=== PATIENT | male | born 1955 | race Caucasian/White ===

== ENCOUNTER 2021-04-01 10:02 | Outpatient (AMB) | payer BC, OTHER, SELFPAY ==
--- NOTE | 2021-04-01 10:30 | UROVISIT ---
Intake Vital Signs 04/01/21 10:31 Height 1.68 m Height Method Stated Weight 76.204 kg Weight Measurement Method Standing Scale BMI 27.1 Temp 97.2 F Temp Source Temporal Artery Scan Pulse 102 H Pulse Source Monitor BP 145/85 H Blood Pressure Source Automatic Cuff Blood Pressure Location Left Upper Arm Position Sitting Intake Visit Reasons: Uro Office Visit Heater Tender Required: No Is patient in pain?: No Allergy Allergies NKA* Allergy (Uncoded 04/01/21 10:31) Nurse Note: Radha FITCH 04/01/21- patient urine sent out for cytology, patient to have CT urogram Stat, CMP lab req. given, 3 week f/u appt. Fall Screening Do you have a fear of falling?: No Have you had a fall in the last 2 months?: No Do you use an assistive device for ambulation?: No Current Vital Signs Height Height Method Weight Weight Measurement Method Body Mass Index Temperature Temperature Source 1.68 m Stated 76.204 kg Standing Scale 27.1 97.2 F Temporal Artery Scan 04/01/21 10:31 04/01/21 10:31 04/01/21 10:31 04/01/21 10:31 04/01/21 10:31 04/01/21 10:31 04/01/21 10:31 Pulse Rate Pulse Source Blood Pressure Blood Pressure Source Blood Pressure Location Blood Pressure Position 102 H Monitor 145/85 H Automatic Cuff Left Upper Arm Sitting 04/01/21 10:31 04/01/21 10:31 04/01/21 10:31 04/01/21 10:31 04/01/21 10:31 04/01/21 10:31 Nursing Documentation Social History Living Situation History Housing: House Tobacco History Smoking Status: Never smoker Office Procedures Uro Clinic Insert Urinary Cath Catheter Hill: Date of Insertion: 04/01/21 Time of Insertion: 11:17 Catheter balloon size (mL): 10 Patency: Patent/Draining Urine Characteristics: Hematuria Color: Charles Mix Odor: Normal Catheter Care: Annel-care Indwelling Catheter Care Protocol Followed: Closed System Intact, Bag Hung Below Bladder, Catheter Properly Secured and Tubing Free of Kinks My Supervising Practitioner for this visit:: Sid Mills Cath Insertion: Yes Uro Level of Care Nursing/Assessment/Reassessment Patient Status: Established Patient Nursing Assessment/Reassessment: Update [facility] data in EMR, Vital Signs and Medication Reconciliation Coordination of Care: Comp Pt/Fam Ed for care Established Patient Point Assignment: 50 Established Patient Point Charge: EP Level 2 (40-75) Procedure IM Injection: Yes Medication Given Medication Given Medication Given: Yes Route: IM Office Meds ceftriaxone Performing Provider: Sid Mills MD Administered by: Radha Villafuerte RN on 04/01/21 11:16 Dose Route Admin Location Lot Number Expiration Date [place] [employer] 1 g IM right ventrogluteal Xylocaine Performing Provider: Sid Mills MD Administered by: Radha Villafuerte RN on 04/01/21 11:16 Dose Route Admin Location Lot Number Expiration Date [employer] 10 mg subcut Urology [facility] Office Visit Office Visit Date of visit:: April 01, 2021 10:02 Allergies & Home Medications: Allergies NKA* Allergy (Uncoded 03/09/21 13:08) Visit: Reason for visit: [] Office Visit findings: []
[2021-04-01 10:31] VITALS: BP 145/85; PULSE 102; TEMP 36.2; BMI 27.1
--- NOTE | 2021-04-02 06:52 | URONOTEN_ITS ---
RE: SANTHOSH SOW : 1955 DATE: 04/01/2021 CHIEF COMPLAINT: 1. Difficulty in urinating. 2. Gross hematuria. 3. Urinary retention. 4. Hypertension. 5. Large epididymal cyst, left scrotum. 6. Erectile dysfunction. HISTORY OF PRESENT ILLNESS: This is a 65-year-old gentleman. He has same day appointment in Urology office. This patient has difficulty in urinating. He also passed blood in the urine twice. The patient has frequency of urination x1 at night, every hour during the day. He has dysuria and hematuria. This has been going on for more than 3 days. He has seen immigration lawyer, who found a swollen prostate gland and he complains of swelling of his buttocks and he has seen Dr. Burnham. Past medical history, family history, review of systems, personal history, please refer to patient history form dated, 04/01/2021, it is in HPI, in EMR. PHYSICAL EXAMINATION: General: Condition is satisfactory. Orientation x3. Vital Signs: Vital signs are stable. They are in the HPI, in EMR. HEENT: Normocephalic, atraumatic. Eyes: No anemia or jaundice. Neck: Supple. Trachea is central. Thyroid is not enlarged. Chest: Symmetrical. Extremities: Revealed no edema, cyanosis, or clubbing. Heart: Regular rate and rhythm. Abdomen: No masses. Liver, spleen, kidney not palpable. No CVA tenderness. Genitalia: Testes, epididymis, scrotum, urethra, external meatus all normal. He has suprapubic tenderness. Rectal: Revealed perineum to be normal. External sphincter tone is normal. He has a boggy and tender prostate gland. The patient has been on Cipro for the same. There are no rectal masses. IMPRESSION: 1. BPH with urinary retention. 2. Gross hematuria. 3. Left epididymal cyst. 4. Prostatitis, on Cipro. RECOMMENDATION: 1. I measured his residual urine is 450 mL. The patient is unable to urinate. I inserted a Hill catheter. 2. I have scheduled him for CAT scan urogram. 3. Urine for cytology. I called radiology department and made his same day appointment for CAT scan and I am sending urine for culture and he is started on Bactrim DS 1 tablet p.o. b.i.d., stop Cipro. All above issues were discussed with the patient in great detail. Questions were answered to his satisfaction. He verbalized understanding. Twenty five minutes were spent in counseling and coordination of care of the patient. Also, I recommended him to take tamsulosin 0.8 mg p.o. daily at nighttime half an hour after food, remove Hill catheter on Monday morning and followup appointment in Urology office in 2 weeks. He is going to need a cystoscopic examination. All above issues were discussed with the patient in detail. Questions answered to his satisfaction. He verbalized understanding. DT: 11:45:36 TT: 14:15:00 Ref: - TID: [id number]
== END 2021-04-01 11:20 | disposition home or self-care (01) ==
LOC: HODURO 10:02
PROVIDERS: PCP Specialist; Visit Provider Urology

== ENCOUNTER → 2024-07-30 | Outpatient (CLI) | payer BC, OTHER, SELFPAY ==
[2024-07-30 14:04] LABS: Collection Type, Urine Clean Catch; Squamous Epithelial Cell,Urine 0 /hpf (0-5)
[2024-07-30 14:21] LABS: Basophils % (Auto) 1 % (0-2.5); Eosinophils # (Auto) 0.1 Thou/mm3 (0.0-0.5); Eosinophils % (Auto) 2 % (0-10); Hematocrit 43.6 % (41.0-53.0); Hemoglobin 15.6 g/dL (13.5-16.0); Immature Granulocytes % (Auto) 0 % (0-0); Immature Granulocytes Auto 0.02 Thou/mm3 (0.00-0.00); Lymphocytes # (Auto) 1.5 Thou/mm3 (1.0-4.8); Lymphocytes % (Auto) 27 % (10-50); Mean Corpuscular HGB Conc 35.8 g/dl (31.0-37.0); Mean Corpuscular Hemoglobin 27.8 pg (25.0-35.0); Mean Corpuscular Volume 78 fL (80-100); Monocytes # (Auto) 0.5 Thou/mm3 (0.0-0.8); Monocytes % (Auto) 10 % (0-12); Neutrophils # (Auto) 3.3 Thou/mm3 (1.8-7.7); Neutrophils % (Auto) 60 % (37-80); Nucleated Red Blood Cell % 0 /100 WBC (0); Platelet Count 203 Thou/mm3 (140-440); RDW Standard Deviation 39.1 fL (35.1-43.9); Red Blood Count 5.61 Miln/mm3 (4.50-5.90); White Blood Count 5.5 Thou/mm3 (3.8-10.6)
[2024-07-30 14:33] LABS: Glucose Estimated Average 105 mg/dL (80-131); Hemoglobin A1C 5.3 % Hgb (4.8-6.0)
[2024-07-30 14:36] LABS: Alanine Aminotransferase 34 U/L (10-49); Albumin, Serum 4.3 gm/dL (3.4-4.8); Alkaline Phosphatase 85 U/L (46-116); Anion Gap 7 (7-16); BUN/Creatinine Ratio 20 Ratio (12-20); Bilirubin,Total 0.6 mg/dL (0.3-1.2); Blood Urea Nitrogen 14 mg/dL (9-23); Calcium 8.7 mg/dL (8.3-10.6); Calcium (Corrected) 8.7 mg/dL (8.5-10.1); Carbon Dioxide 29.6 mMol/L (20.0-31.0); Cardiac Risk Estimate 3.3 RATIO (4.0-6.7); Chloride 108 mMol/L (98-107); Cholesterol 160 mg/dL (132-200); Creatinine (Component) 0.7 mg/dL (0.6-1.3); Globulin 2.2 gm/dL (2.3-3.5); Glucose 98 mg/dL (74-106); HDL Cholesterol 49 mg/dL (40-60); LDL Cholesterol,Calculated 80 mg/dL (0-130); Osmolality,Calculated 289 (275-295); Potassium 4.2 mMol/L (3.4-5.1); Sodium 145 mMol/L (136-145); Thyroid Stimulating Hormone 0.82 uIU/mL (0.55-4.78); Total Protein 6.5 gm/dL (5.7-8.2); Triglycerides 157 mg/dL (30-150); eGFR > 60 See Note
[2024-07-30 14:36] LABS: Bilirubin,Urine Negative (Negative); Blood,Urine 3+ (Negative); Clarity,Urine Clear (Clear/Hazy); Color,Urine Lt-Yellow (Lt Yel-Yel); Glucose, Urine Negative (Negative); Ketones,Urine Negative (Negative); Leukocyte Esterase,Urine Negative (Negative); Nitrite,Urine Negative (Negative); PH,Urine 5.5 (5.0-7.0); Protein,Urine Negative (Neg - Trace); RBC,Urine 111 /hpf (0-3); Urobilinogen,Urine Negative mg/dL (0.0-1.0); WBC,Urine 2 /hpf (0-5)
[2024-07-30 14:37] LABS: Prostate Specific Antigen 1.35 ng/mL (0-4.00)
[2024-07-30 14:42] LABS: Vitamin B12 505 pg/mL (211-911); Vitamin D 25 Hydroxy Total 33.4 ng/mL (7.3-40.2)
== END | disposition home or self-care (01) ==
LOC: COPL 13:31
PROVIDERS: PCP Specialist; Referring Provider Specialist; Visit Provider Specialist
DX: I10 Essential (primary) hypertension (principal); E03.9 Hypothyroidism, unspecified
CPT/HCPCS: 36415; 80053; 80061; 81001; 82306; 82607; 82746; 83036; 84153; 84443; 85025

== ENCOUNTER → 2024-09-19 | Outpatient (CLI) | payer BC, OTHER, SELFPAY ==
[2024-09-19 17:27] LABS: Prostate Specific Antigen 1.29 ng/mL (0-4.00)
== END | disposition home or self-care (01) ==
PROVIDERS: PCP Specialist; Referring Provider Specialist; Visit Provider Specialist
DX: E78.9 Disorder of lipoprotein metabolism, unspecified (principal)
CPT/HCPCS: 36415; 84153

== ENCOUNTER → 2024-12-30 | Outpatient (BNVA) | payer BC, OTHER, SELFPAY | END | disposition home or self-care (01) | PROVIDERS: PCP Specialist; Referring Provider Specialist; Visit Provider Physician Assistant | DX: N40.0 Benign prostatic hyperplasia without lower urinary tract symptoms (principal); N32.81 Overactive bladder; N43.3 Hydrocele, unspecified | CPT/HCPCS: Q3014 ==

== ENCOUNTER → 2024-12-30 | Outpatient (CLI) | payer BC, OTHER, SELFPAY ==
--- NOTE | 2024-12-30 15:21 | XR_ITS ---
EXAMINATION: Thyroid sonography complete TECHNIQUE: Grayscale sonographic images thyroid lobes Date and time: December 30, 2024, 1558 hours INDICATIONS: Left testicular pain beginning 3 weeks ago. COMPARISON: 10/27/2020 FINDINGS: Right testis 4.4 cm epididymis 19 mm Epididymal cyst 4 mm Arterial flow the testicle. Testicular cyst 4 x 5 mm no solid testicular mass Left testis 4.0 cm epididymis 28 mm Epididymal cysts, 7 mm, 3 mm Testicular cyst 3 mm Arterial flow the testicle. No solid testicular mass IMPRESSION: No testicular torsion or testicular mass Small benign testicular cyst Small benign epididymal cysts
== END | disposition home or self-care (01) ==
PROVIDERS: PCP Physician Assistant; Referring Provider Specialist; Visit Provider Urology
DX: N44.2 Benign cyst of testis (principal); N50.3 Cyst of epididymis
CPT/HCPCS: 76870